=== PATIENT | male | born 1955 | race Caucasian/White ===

== ENCOUNTER 2018-04-24 16:23 | Emergency (ER) | payer OTHER, SELFPAY ==
[2018-04-24] VITALS (7 sets, daily range): BP systolic 138–180; BP diastolic 70–95; PULSE 54–120; RESP 10–25; TEMP 36.8; O2SAT 97–99
--- NOTE | 2018-04-24 16:35 | ED.CHESTPAIN ---
HPI - Chest Pain <CATHRYN cMcall - Last Filed: 04/24/18 22:21> General Chief Complaint: Chest Pain Stated Complaint: Chest Pain Time Seen by Provider: 04/24/18 16:35 Source: patient and EMS Mode of arrival: EMS Limitations: no limitations History of Present Illness HPI narrative: Patient had sudden onset of 10/10 chest pain that radiated around to his back. This occurred while he was sitting and typing and then was eating a donut. He denies any cardiac history but states he has a history of untreated hypertension. He was given 4 baby aspirin and 1 nitro spray at the clinic at the [employer] where he works. These single dose of nitro brought his pain down to 0/10. He denied any lightheadedness, dizziness, palpitations, nausea or vomiting during this episode. He is concerned he is having a heart attack. He notes that this several times he most recently gave blood they said his blood pressure was elevated. He denies any cough or respiratory distress. Denies fever. Related Data Home Medications Medication Instructions Recorded Confirmed No Known Home Medications 04/24/18 04/24/18 Previous Rx's Medication Instructions Recorded atorvastatin 10 mg PO DAILY #14 tab 04/24/18 metoprolol succinate 50 mg PO DAILY #14 tab 04/24/18 nitroglycerin [Nitrostat] 0.4 mg SL Q5M PRN #10 tab 04/24/18 Allergies Allergy/AdvReac Type Severity Reaction Status Date / Time No Known Allergies Allergy Uncoded 03/12/18 13:03 Review of Systems <CATHRYN Mccall - Last Filed: 04/24/18 22:21> Review of Systems GENERAL: See HPI HEENT: Denies sinus pain, ear pain, sore throat, difficulty swallowing, dizziness. RESPIRATORY: See HPI CARDIOVASCULAR: See HPI GASTROINTESTINAL: See HPI : Denies dysuria, frequency, incontinence, hematuria, urinary retention. MUSCULOSKELETAL: denies weakness, joint pain, or bony pain SKIN: Denies rash, skin lesions, or other NEUROLOGIC: Denies weakness, headache, numbness, change in speech, confusion, seizures, incoordination. PSYCHIATRIC: No concerning psychosocial issues. 12 point review of systems is negative except for those stated above Exam <CATHRYN Mccall - Last Filed: 04/24/18 22:21> Narrative Exam Narrative: GENERAL: This is a well-nourished, well-developed patient, no distress sitting in bed on cell phone HEAD: Atraumatic. Normocephalic. No temporal or scalp tenderness. EYES: Pupils equal round and reactive. Extraocular motions intact. No scleral icterus. No injection or drainage. ENT: Nose without bleeding, purulent drainage or septal hematoma. Throat without erythema, tonsillar hypertrophy or exudate. Uvula midline. Airway patent. NECK: Trachea midline. No JVD or lymphadenopathy. Supple, nontender, no meningeal signs. No carotid bruits bilaterally CARDIOVASCULAR: Regular rate and rhythm without murmurs, gallops, or rubs. RESPIRATORY: Clear to auscultation. Breath sounds equal bilaterally. No wheezes, rales, or rhonchi. GASTROINTESTINAL: Abdomen soft, non-tender, nondistended. No hepato-splenomegaly, or palpable masses. No guarding. EXTREMITIES: No clubbing, cyanosis, or edema. No joint tenderness, effusion, or edema noted. BACK: Nontender without deformity or crepitance. No flank tenderness. NEURO: AOx3. SKIN: No rash or erythema. Initial Vital Signs Initial Vital Signs: Vital Signs Temperature 98.2 F 04/24/18 16:20 Pulse Rate 70 04/24/18 16:20 Respiratory Rate 15 04/24/18 16:20 Blood Pressure 153/70 H 04/24/18 16:20 Pulse Oximetry 97 04/24/18 16:20 <Mindi Quach DO - Last Filed: 04/25/18 03:32> Initial Vital Signs Initial Vital Signs: Vital Signs Temperature 98.2 F 04/24/18 16:20 Pulse Rate 70 04/24/18 16:20 Respiratory Rate 15 04/24/18 16:20 Blood Pressure 153/70 H 04/24/18 16:20 Pulse Oximetry 97 04/24/18 16:20 Course <CATHRYN Mccall - Last Filed: 04/24/18 22:21> Hospital Course: Patient presents with chest pain that resolved with 1 nitro spray. Upon arrival to the emergency department he was pain free. A stat EKG was ordered that revealed sinus rhythm. He was hooked up to a monitor as well as lab work drawn and a chest x-ray taken. A chest x-ray showed no acute process. His initial set of lab work was negative with a negative troponin. Given the patient's risk factors of high blood pressure, obesity, positive family history I spoke with Dr. Gifford to recommend a an admission for a cardiac rule out. Heart score 4. Dr. Gifford recommended an outpatient workup with his PCP and shows did not admit the patient. She suggested starting him on a baby aspirin a day, giving a prescription for nitro starting him on a beta-ilda as well as atorvastatin. I did a 3 hr troponin rule out from time of pain onset. This also came back negative. A 2nd EKG showed no acute changes from the 1st. Patient stated comfort with going home and remained pain-free throughout his entire stay. He has been instructed to follow up with his primary care provider tomorrow for further evaluation. Orders Ordered: ED Orders 04/24/18 19:00 EKG-12 Lead Stat Discontinued Medications Sodium Chloride (Normal Saline 0.9%) 1,000 mls @ 150 mls/hr IV CONT REBA Last Infusion: 04/24/18 20:35 Dose: 0 mls/hr Admin: 04/24/18 16:54 Dose: 150 mls/hr Vital Signs - 8 hr 04/24/18 20:28 04/24/18 20:49 Pulse Rate 120 H 73 Respiratory Rate 16 Blood Pressure 180/95 H Blood Pressure [Left Arm] 180/95 H Pulse Oximetry 97 <Mindi Quach DO - Last Filed: 04/25/18 03:32> Orders Ordered: ED Orders 04/24/18 19:00 EKG-12 Lead Stat Discontinued Medications Sodium Chloride (Normal Saline 0.9%) 1,000 mls @ 150 mls/hr IV CONT REBA Last Infusion: 04/24/18 20:35 Dose: 0 mls/hr Admin: 04/24/18 16:54 Dose: 150 mls/hr Vital Signs - 8 hr 04/24/18 20:28 04/24/18 20:49 Pulse Rate 120 H 73 Respiratory Rate 16 Blood Pressure 180/95 H Blood Pressure [Left Arm] 180/95 H Pulse Oximetry 97 MDM - Chest Pain <CATHRYN Mccall - Last Filed: 04/24/18 22:21> Lab Data Attestation: I reviewed the patient's lab results. Result diagrams: 04/24/18 17:00 04/24/18 17:00 Lab Results 04/24/18 04/24/18 04/24/18 Range/Units 17:00 17:00 17:00 WBC 6.6 (4.5-11.0) X10^3/uL RBC 4.64 (4.5-5.9) X10^6/uL Hgb 13.1 L (13.5-17.5) g/dL Hct 39.3 L (41-53) % MCV 84.8 (80-100) fL MCH 28.3 (26-34) PG MCHC 33.4 (30-36) % RDW 14.1 (11.6-14.8) % Plt Count 163 (150-400) X10^3/uL Neut % (Auto) 60.1 (50-75) % Lymph % (Auto) 28.4 (25-40) % [place] % (Auto) 7.3 (3-14) % Eos % (Auto) 2.9 (2-4) % Baso % (Auto) 1.3 (0-2) % Neut # (Auto) 4000 (0722-0033) /uL PT 11.5 (10.1-12.7) SECONDS INR 1.1 (0.9-1.3) APTT 34 (26.4-36.2) SECONDS Sodium 142 (137-145) mmol/L Potassium 4.1 (3.4-5.1) mmol/L Chloride 105.0 (98-107) mmol/L Carbon Dioxide 27.0 (22-32) mmol/L BUN 19.0 (9-20) mg/dL Creatinine 0.80 (0.66-1.25) mg/dL Estimated GFR > 60.0 (>60) mL/min BUN/Creatinine Ratio 23.8 H (6-22) Glucose 130 H (80-110) mg/dL Calcium 8.6 (8.4-10.2) mg/dL Total Bilirubin 0.3 (0.2-1.3) mg/dL AST 39 (17-59) IU/L ALT 58 (21-72) IU/L Alkaline Phosphatase 93 (38-126) U/L Total Creatine Kinase 57 (55-170) U/L Troponin I < 0.012 (0.01-0.034) ng/mL Total Protein 6.7 (6.3-8.2) g/dL Albumin 3.8 (3.5-5.0) g/dL Globulin 2.9 (1.7-4.1) g/dL Albumin/Globulin Ratio 1.3 (1.0-2.8) Lipase 87 (23-300) U/L 05/24/18 Range/Units Unknown WBC (4.5-11.0) X10^3/uL RBC (4.5-5.9) X10^6/uL Hgb (13.5-17.5) g/dL Hct (41-53) % MCV (80-100) fL MCH (26-34) PG MCHC (30-36) % RDW (11.6-14.8) % Plt Count (150-400) X10^3/uL Neut % (Auto) (50-75) % Lymph % (Auto) (25-40) % [place] % (Auto) (3-14) % Eos % (Auto) (2-4) % Baso % (Auto) (0-2) % Neut # (Auto) (0228-9593) /uL PT (10.1-12.7) SECONDS INR (0.9-1.3) APTT (26.4-36.2) SECONDS Sodium (137-145) mmol/L Potassium (3.4-5.1) mmol/L Chloride (98-107) mmol/L Carbon Dioxide (22-32) mmol/L BUN (9-20) mg/dL Creatinine (0.66-1.25) mg/dL Estimated GFR (>60) mL/min BUN/Creatinine Ratio (6-22) Glucose (80-110) mg/dL Calcium (8.4-10.2) mg/dL Total Bilirubin (0.2-1.3) mg/dL AST (17-59) IU/L ALT (21-72) IU/L Alkaline Phosphatase (38-126) U/L Total Creatine Kinase (55-170) U/L Troponin I < 0.012 (0.01-0.034) ng/mL Total Protein (6.3-8.2) g/dL Albumin (3.5-5.0) g/dL Globulin (1.7-4.1) g/dL Albumin/Globulin Ratio (1.0-2.8) Lipase (23-300) U/L Imaging Data Chest x-ray: Radiologist's impression: [address] [id number] XRay Report Signed Patient: Bhavin Beckwith MR#: [id number] : 1955 Acct:[id number] Age/Sex: 62 / M Date of Service: 04/24/18 Loc: ED Accession Number: [id number] Procedure: XR chest 1V Ordering Provider: Cookie Escoto PROCEDURE: XR CHEST 1V INDICATIONS: chest pain TECHNIQUE: One view of the chest was acquired. COMPARISON: None. FINDINGS: Surgical changes and devices: None. Lungs and pleura: No pleural effusions or pneumothorax. Lungs are clear. Mediastinum: Mediastinal contours appear normal. Heart size is normal. Bones and chest wall: No suspicious bony lesions. Overlying soft tissues appear unremarkable. IMPRESSION: No acute cardiopulmonary disease process. Dictated by: Dimple Guy MD, PhD on 04/24/2018 at 15:54 Approved by: Dimple Guy MD, PhD on 04/24/2018 at 15:55 ECG Data Attestation: I personally reviewed and interpreted this ECG as follows: Interpretation: EKG at 4:22 p.m: Sinus with a ventricular rate of 63. No acute ST changes. NV interval 169. Viewed by Dr. Treadwell EKG at 6:53 p.m: Sinus rhythm rate of 54. No acute ST changes. NV interval 177. Viewed by Dr. Quach [facility] Narrative Medical decision making narrative: Patient presented for chest pain. He had 2-troponins as well as 2-EKGs. However the fact that his pain responded to nitroglycerin is concerning. I did attempt to admit the patient for observation status however Dr. Gifford declined to do so. She recommended follow-up as an outpatient with Dr. Reid the patient's PCP. The patient states understanding of such. The patient remained pain-free throughout his entire emergency department stay. Patient was started on 50 of Toprol-XL daily as per up-to-date recommendations. Dr. Gifford suggested a beta-ilda. He also was instructed to take a baby aspirin a day as per Dr. Giffrod. He was given a nitroglycerin prescription as per Dr. Gifford. I discussed at length with him the utilization of this prescription as well as not combined a medication such as Viagra. We discussed the possible side effects of decreased blood pressure, headache. He was also started on [address] Gifford suggested atorvastatin. I discussed the possible side effects of muscle pain and instructed him to follow up with primary care provider if he has any muscle pain. <Mindi Quach, DO - Last Filed: 04/25/18 03:32> Lab Data Attestation: I reviewed the patient's lab results. Lab Results 04/24/18 04/24/18 04/24/18 Range/Units 17:00 17:00 17:00 WBC 6.6 (4.5-11.0) X10^3/uL RBC 4.64 (4.5-5.9) X10^6/uL Hgb 13.1 L (13.5-17.5) g/dL Hct 39.3 L (41-53) % MCV 84.8 (80-100) fL MCH 28.3 (26-34) PG MCHC 33.4 (30-36) % RDW 14.1 (11.6-14.8) % Plt Count 163 (150-400) X10^3/uL Neut % (Auto) 60.1 (50-75) % Lymph % (Auto) 28.4 (25-40) % [place] % (Auto) 7.3 (3-14) % Eos % (Auto) 2.9 (2-4) % Baso % (Auto) 1.3 (0-2) % Neut # (Auto) 4000 (5818-7496) /uL PT 11.5 (10.1-12.7) SECONDS INR 1.1 (0.9-1.3) APTT 34 (26.4-36.2) SECONDS Sodium 142 (137-145) mmol/L Potassium 4.1 (3.4-5.1) mmol/L Chloride 105.0 (98-107) mmol/L Carbon Dioxide 27.0 (22-32) mmol/L BUN 19.0 (9-20) mg/dL Creatinine 0.80 (0.66-1.25) mg/dL Estimated GFR > 60.0 (>60) mL/min BUN/Creatinine Ratio 23.8 H (6-22) Glucose 130 H (80-110) mg/dL Calcium 8.6 (8.4-10.2) mg/dL Total Bilirubin 0.3 (0.2-1.3) mg/dL AST 39 (17-59) IU/L ALT 58 (21-72) IU/L Alkaline Phosphatase 93 (38-126) U/L Total Creatine Kinase 57 (55-170) U/L Troponin I < 0.012 (0.01-0.034) ng/mL Total Protein 6.7 (6.3-8.2) g/dL Albumin 3.8 (3.5-5.0) g/dL Globulin 2.9 (1.7-4.1) g/dL Albumin/Globulin Ratio 1.3 (1.0-2.8) Lipase 87 (23-300) U/L / Range/Units Unknown WBC (4.5-11.0) X10^3/uL RBC (4.5-5.9) X10^6/uL Hgb (13.5-17.5) g/dL Hct (41-53) % MCV (80-100) fL MCH (26-34) PG MCHC (30-36) % RDW (11.6-14.8) % Plt Count (150-400) X10^3/uL Neut % (Auto) (50-75) % Lymph % (Auto) (25-40) % [place] % (Auto) (3-14) % Eos % (Auto) (2-4) % Baso % (Auto) (0-2) % Neut # (Auto) (4733-0134) /uL PT (10.1-12.7) SECONDS INR (0.9-1.3) APTT (26.4-36.2) SECONDS Sodium (137-145) mmol/L Potassium (3.4-5.1) mmol/L Chloride (98-107) mmol/L Carbon Dioxide (22-32) mmol/L BUN (9-20) mg/dL Creatinine (0.66-1.25) mg/dL Estimated GFR (>60) mL/min BUN/Creatinine Ratio (6-22) Glucose (80-110) mg/dL Calcium (8.4-10.2) mg/dL Total Bilirubin (0.2-1.3) mg/dL AST (17-59) IU/L ALT (21-72) IU/L Alkaline Phosphatase (38-126) U/L Total Creatine Kinase (55-170) U/L Troponin I < 0.012 (0.01-0.034) ng/mL Total Protein (6.3-8.2) g/dL Albumin (3.5-5.0) g/dL Globulin (1.7-4.1) g/dL Albumin/Globulin Ratio (1.0-2.8) Lipase (23-300) U/L ECG Data Attestation: I personally reviewed and interpreted this ECG as follows: Prior ECG tracings: not available for review Interpretation: EKG 1. Normal sinus rhythm rate [address] changes or T-wave inversions no priors to compare EKG 2. Normal sinus rhythm rate 54 no changes from earlier no acute ST T changes or T-wave inversions MDM Narrative Medical decision making narrative: Heart score equals 2 2-troponins chest pain free Discharge Plan Departure Patient Disposition: Home, Self-Care Clinical Impression: Chest pain Discharge Date/Time: 04/24/18 20:51 Interventions: ED Discharge Assessment Last Done: 04/24/18 20:49 Instructions: DI for Angina, DI for Chest Pain Activity Restrictions/Additional Instructions: I would like you to follow up with your primary care provider tomorrow. I am starting you on an as-needed medication if the chest pain happened again. Put 1 nitroglycerin under your tongue if you have chest pain wait 5 min and take up to 2 more for a total of 3 pills if you need to, 5 min apart. They can give you a headache or make you lightheaded. Do not take this with medications such as Viagra. Start taking a baby aspirin a day I would like you to come back to the emergency department if you have any further chest pain or lightheadedness, shortness of breath, dizziness or concerned about your heart. Prescriptions: New atorvastatin 10 mg tablet 10 mg PO DAILY Qty: 14 RF: 0 metoprolol succinate 50 mg tablet extended release 24 hr 50 mg PO DAILY Qty: 14 RF: 0 nitroglycerin [Nitrostat] 0.4 mg tablet, sublingual 0.4 mg SL Q5M PRN (Reason: chest pain) Qty: 10 RF: 0 No Action No Known Home Medications RF: 0 <Mindi Quach, - Last Filed: 04/25/18 03:32> Cosign ED Attending Kathyaature Attestation: I was immediately available in the department for consultation. Documentation has been reviewed. I agree with assessment and plan.
--- NOTE | 2018-04-24 16:41 | ED_ITS ---
HPI - Chest Pain <CATHRYN Mccall - Last Filed: 04/24/18 22:21> General Chief Complaint: Chest Pain Stated Complaint: Chest Pain Time Seen by Provider: 04/24/18 16:35 Source: patient and EMS Mode of arrival: EMS Limitations: no limitations History of Present Illness HPI narrative: Patient had sudden onset of 10/10 chest pain that radiated around to his back. This occurred while he was sitting and typing and then was eating a donut. He denies any cardiac history but states he has a history of untreated hypertension. He was given 4 baby aspirin and 1 nitro spray at the clinic at the [employer] where he works. These single dose of nitro brought his pain down to 0/10. He denied any lightheadedness, dizziness, palpitations, nausea or vomiting during this episode. He is concerned he is having a heart attack. He notes that this several times he most recently gave blood they said his blood pressure was elevated. He denies any cough or respiratory distress. Denies fever. Related Data Home Medications Medication Instructions Recorded Confirmed No Known Home Medications 04/24/18 04/24/18 Previous Rx's Medication Instructions Recorded atorvastatin 10 mg PO DAILY #14 tab 04/24/18 metoprolol succinate 50 mg PO DAILY #14 tab 04/24/18 nitroglycerin [Nitrostat] 0.4 mg SL Q5M PRN #10 tab 04/24/18 Allergies Allergy/AdvReac Type Severity Reaction Status Date / Time No Known Allergies Allergy Uncoded 03/12/18 13:03 Review of Systems <CATHRYN Mccall - Last Filed: 04/24/18 22:21> Review of Systems GENERAL: See HPI HEENT: Denies sinus pain, ear pain, sore throat, difficulty swallowing, dizziness. RESPIRATORY: See HPI CARDIOVASCULAR: See HPI GASTROINTESTINAL: See HPI : Denies dysuria, frequency, incontinence, hematuria, urinary retention. MUSCULOSKELETAL: denies weakness, joint pain, or bony pain SKIN: Denies rash, skin lesions, or other NEUROLOGIC: Denies weakness, headache, numbness, change in speech, confusion, seizures, incoordination. PSYCHIATRIC: No concerning psychosocial issues. 12 point review of systems is negative except for those stated above Exam <CATHRYN Mccall - Last Filed: 04/24/18 22:21> Narrative Exam Narrative: GENERAL: This is a well-nourished, well-developed patient, no distress sitting in bed on cell phone HEAD: Atraumatic. Normocephalic. No temporal or scalp tenderness. EYES: Pupils equal round and reactive. Extraocular motions intact. No scleral icterus. No injection or drainage. ENT: Nose without bleeding, purulent drainage or septal hematoma. Throat without erythema, tonsillar hypertrophy or exudate. Uvula midline. Airway patent. NECK: Trachea midline. No JVD or lymphadenopathy. Supple, nontender, no meningeal signs. No carotid bruits bilaterally CARDIOVASCULAR: Regular rate and rhythm without murmurs, gallops, or rubs. RESPIRATORY: Clear to auscultation. Breath sounds equal bilaterally. No wheezes , rales, or rhonchi. GASTROINTESTINAL: Abdomen soft, non-tender, nondistended. No hepato-splenomegaly , or palpable masses. No guarding. EXTREMITIES: No clubbing, cyanosis, or edema. No joint tenderness, effusion, or edema noted. BACK: Nontender without deformity or crepitance. No flank tenderness. NEURO: AOx3. SKIN: No rash or erythema. Initial Vital Signs Initial Vital Signs: Vital Signs Temperature 98.2 F 04/24/18 16:20 Pulse Rate 70 04/24/18 16:20 Respiratory Rate 15 04/24/18 16:20 Blood Pressure 153/70 H 04/24/18 16:20 Pulse Oximetry 97 04/24/18 16:20 <Mindi Quach DO - Last Filed: 04/25/18 03:32> Initial Vital Signs Initial Vital Signs: Vital Signs Temperature 98.2 F 04/24/18 16:20 Pulse Rate 70 04/24/18 16:20 Respiratory Rate 15 04/24/18 16:20 Blood Pressure 153/70 H 04/24/18 16:20 Pulse Oximetry 97 04/24/18 16:20 Course <CATHRYN Mccall - Last Filed: 04/24/18 22:21> Hospital Course: Patient presents with chest pain that resolved with 1 nitro spray. Upon arrival to the emergency department he was pain free. A stat EKG was ordered that revealed sinus rhythm. He was hooked up to a monitor as well as lab work drawn and a chest x-ray taken. A chest x-ray showed no acute process. His initial set of lab work was negative with a negative troponin. Given the patient's risk factors of high blood pressure, obesity, positive family history I spoke with Dr. Gifford to recommend a an admission for a cardiac rule out. Heart score 4. Dr. Gifford recommended an outpatient workup with his PCP and shows did not admit the patient. She suggested starting him on a baby aspirin a day, giving a prescription for nitro starting him on a beta-ilda as well as atorvastatin. I did a 3 hr troponin rule out from time of pain onset. This also came back negative. A 2nd EKG showed no acute changes from the 1st. Patient stated comfort with going home and remained pain-free throughout his entire stay. He has been instructed to follow up with his primary care provider tomorrow for further evaluation. Orders Ordered: ED Orders 04/24/18 19:00 EKG-12 Lead Stat Discontinued Medications Sodium Chloride (Normal Saline 0.9%) 1,000 mls @ 150 mls/hr IV CONT REBA Last Infusion: 04/24/18 20:35 Dose: 0 mls/hr Admin: 04/24/18 16:54 Dose: 150 mls/hr Vital Signs - 8 hr 04/24/18 20:28 04/24/18 20:49 Pulse Rate 120 H 73 Respiratory Rate 16 Blood Pressure 180/95 H Blood Pressure [Left Arm] 180/95 H Pulse Oximetry 97 <Mindi Quach DO - Last Filed: 04/25/18 03:32> Orders Ordered: ED Orders 04/24/18 19:00 EKG-12 Lead Stat Discontinued Medications Sodium Chloride (Normal Saline 0.9%) 1,000 mls @ 150 mls/hr IV CONT REBA Last Infusion: 04/24/18 20:35 Dose: 0 mls/hr Admin: 04/24/18 16:54 Dose: 150 mls/hr Vital Signs - 8 hr 04/24/18 20:28 04/24/18 20:49 Pulse Rate 120 H 73 Respiratory Rate 16 Blood Pressure 180/95 H Blood Pressure [Left Arm] 180/95 H Pulse Oximetry 97 MDM - Chest Pain <CATHRYN Mccall - Last Filed: 04/24/18 22:21> Lab Data Attestation: I reviewed the patient's lab results. Result diagrams: 04/24/18 17:00 04/24/18 17:00 Lab Results 04/24/18 04/24/18 04/24/18 Range/Units 17:00 17:00 17:00 WBC 6.6 (4.5-11.0) X10^3/uL RBC 4.64 (4.5-5.9) X10^6/uL Hgb 13.1 L (13.5-17.5) g/dL Hct 39.3 L (41-53) % MCV 84.8 (80-100) fL MCH 28.3 (26-34) PG MCHC 33.4 (30-36) % RDW 14.1 (11.6-14.8) % Plt Count 163 (150-400) X10^3/uL Neut % (Auto) 60.1 (50-75) % Lymph % (Auto) 28.4 (25-40) % [place] % (Auto) 7.3 (3-14) % Eos % (Auto) 2.9 (2-4) % Baso % (Auto) 1.3 (0-2) % Neut # (Auto) 4000 (3440-6647) /uL PT 11.5 (10.1-12.7) SECONDS INR 1.1 (0.9-1.3) APTT 34 (26.4-36.2) SECONDS Sodium 142 (137-145) mmol/L Potassium 4.1 (3.4-5.1) mmol/L Chloride 105.0 (98-107) mmol/L Carbon Dioxide 27.0 (22-32) mmol/L BUN 19.0 (9-20) mg/dL Creatinine 0.80 (0.66-1.25) mg/dL Estimated GFR > 60.0 (>60) mL/min BUN/Creatinine Ratio 23.8 H (6-22) Glucose 130 H (80-110) mg/dL Calcium 8.6 (8.4-10.2) mg/dL Total Bilirubin 0.3 (0.2-1.3) mg/dL AST 39 (17-59) IU/L ALT 58 (21-72) IU/L Alkaline Phosphatase 93 (38-126) U/L Total Creatine Kinase 57 (55-170) U/L Troponin I < 0.012 (0.01-0.034) ng/mL Total Protein 6.7 (6.3-8.2) g/dL Albumin 3.8 (3.5-5.0) g/dL Globulin 2.9 (1.7-4.1) g/dL Albumin/Globulin Ratio 1.3 (1.0-2.8) Lipase 87 (23-300) U/L 05/24/18 Range/Units Unknown WBC (4.5-11.0) X10^3/uL RBC (4.5-5.9) X10^6/uL Hgb (13.5-17.5) g/dL Hct (41-53) % MCV (80-100) fL MCH (26-34) PG MCHC (30-36) % RDW (11.6-14.8) % Plt Count (150-400) X10^3/uL Neut % (Auto) (50-75) % Lymph % (Auto) (25-40) % [place] % (Auto) (3-14) % Eos % (Auto) (2-4) % Baso % (Auto) (0-2) % Neut # (Auto) (5016-9390) /uL PT (10.1-12.7) SECONDS INR (0.9-1.3) APTT (26.4-36.2) SECONDS Sodium (137-145) mmol/L Potassium (3.4-5.1) mmol/L Chloride (98-107) mmol/L Carbon Dioxide (22-32) mmol/L BUN (9-20) mg/dL Creatinine (0.66-1.25) mg/dL Estimated GFR (>60) mL/min BUN/Creatinine Ratio (6-22) Glucose (80-110) mg/dL Calcium (8.4-10.2) mg/dL Total Bilirubin (0.2-1.3) mg/dL AST (17-59) IU/L ALT (21-72) IU/L Alkaline Phosphatase (38-126) U/L Total Creatine Kinase (55-170) U/L Troponin I < 0.012 (0.01-0.034) ng/mL Total Protein (6.3-8.2) g/dL Albumin (3.5-5.0) g/dL Globulin (1.7-4.1) g/dL Albumin/Globulin Ratio (1.0-2.8) Lipase (23-300) U/L Imaging Data Chest x-ray: Radiologist's impression: [address] [address] XRay Report Signed Patient: Bhavin Beckwith MR#: [id number] : 1955 Acct:[id number] Age/Sex: 62 / M Date of Service: 04/24/18 Loc: ED Accession Number: [id number] Procedure: XR chest 1V Ordering Provider: Cookie Escoto PROCEDURE: XR CHEST 1V INDICATIONS: chest pain TECHNIQUE: One view of the chest was acquired. COMPARISON: None. FINDINGS: Surgical changes and devices: None. Lungs and pleura: No pleural effusions or pneumothorax. Lungs are clear. Mediastinum: Mediastinal contours appear normal. Heart size is normal. Bones and chest wall: No suspicious bony lesions. Overlying soft tissues appear unremarkable. IMPRESSION: No acute cardiopulmonary disease process. Dictated by: Dimple Guy MD, PhD on 04/24/2018 at 15:54 Approved by: Dimple Guy MD, PhD on 04/24/2018 at 15:55 ECG Data Attestation: I personally reviewed and interpreted this ECG as follows: Interpretation: EKG at 4:22 p.m: Sinus with a ventricular rate of 63. No acute ST changes. MI interval 169. Viewed by Dr. Treadwell EKG at 6:53 p.m: Sinus rhythm rate of 54. No acute ST changes. MI interval 177. Viewed by Dr. Quach [facility] Narrative Medical decision making narrative: Patient presented for chest pain. He had 2- troponins as well as 2-EKGs. However the fact that his pain responded to nitroglycerin is concerning. I did attempt to admit the patient for observation status however Dr. Gifford declined to do so. She recommended follow- up as an outpatient with Dr. Reid the patient's PCP. The patient states understanding of such. The patient remained pain-free throughout his entire emergency department stay. Patient was started on 50 of Toprol-XL daily as per up-to-date recommendations. Dr. Gifford suggested a beta-ilda. He also was instructed to take a baby aspirin a day as per Dr. Gifford. He was given a nitroglycerin prescription as per Dr. Gifford. I discussed at length with him the utilization of this prescription as well as not combined a medication such as Viagra. We discussed the possible side effects of decreased blood pressure, headache. He was also started on [address] Gifford suggested atorvastatin. I discussed the possible side effects of muscle pain and instructed him to follow up with primary care provider if he has any muscle pain. <Mindi Quach, DO - Last Filed: 04/25/18 03:32> Lab Data Attestation: I reviewed the patient's lab results. Lab Results 04/24/18 04/24/18 04/24/18 Range/Units 17:00 17:00 17:00 WBC 6.6 (4.5-11.0) X10^3/uL RBC 4.64 (4.5-5.9) X10^6/uL Hgb 13.1 L (13.5-17.5) g/dL Hct 39.3 L (41-53) % MCV 84.8 (80-100) fL MCH 28.3 (26-34) PG MCHC 33.4 (30-36) % RDW 14.1 (11.6-14.8) % Plt Count 163 (150-400) X10^3/uL Neut % (Auto) 60.1 (50-75) % Lymph % (Auto) 28.4 (25-40) % [place] % (Auto) 7.3 (3-14) % Eos % (Auto) 2.9 (2-4) % Baso % (Auto) 1.3 (0-2) % Neut # (Auto) 4000 (7987-2523) /uL PT 11.5 (10.1-12.7) SECONDS INR 1.1 (0.9-1.3) APTT 34 (26.4-36.2) SECONDS Sodium 142 (137-145) mmol/L Potassium 4.1 (3.4-5.1) mmol/L Chloride 105.0 (98-107) mmol/L Carbon Dioxide 27.0 (22-32) mmol/L BUN 19.0 (9-20) mg/dL Creatinine 0.80 (0.66-1.25) mg/dL Estimated GFR > 60.0 (>60) mL/min BUN/Creatinine Ratio 23.8 H (6-22) Glucose 130 H (80-110) mg/dL Calcium 8.6 (8.4-10.2) mg/dL Total Bilirubin 0.3 (0.2-1.3) mg/dL AST 39 (17-59) IU/L ALT 58 (21-72) IU/L Alkaline Phosphatase 93 (38-126) U/L Total Creatine Kinase 57 (55-170) U/L Troponin I < 0.012 (0.01-0.034) ng/mL Total Protein 6.7 (6.3-8.2) g/dL Albumin 3.8 (3.5-5.0) g/dL Globulin 2.9 (1.7-4.1) g/dL Albumin/Globulin Ratio 1.3 (1.0-2.8) Lipase 87 (23-300) U/L / Range/Units Unknown WBC (4.5-11.0) X10^3/uL RBC (4.5-5.9) X10^6/uL Hgb (13.5-17.5) g/dL Hct (41-53) % MCV (80-100) fL MCH (26-34) PG MCHC (30-36) % RDW (11.6-14.8) % Plt Count (150-400) X10^3/uL Neut % (Auto) (50-75) % Lymph % (Auto) (25-40) % [place] % (Auto) (3-14) % Eos % (Auto) (2-4) % Baso % (Auto) (0-2) % Neut # (Auto) (8512-8122) /uL PT (10.1-12.7) SECONDS INR (0.9-1.3) APTT (26.4-36.2) SECONDS Sodium (137-145) mmol/L Potassium (3.4-5.1) mmol/L Chloride (98-107) mmol/L Carbon Dioxide (22-32) mmol/L BUN (9-20) mg/dL Creatinine (0.66-1.25) mg/dL Estimated GFR (>60) mL/min BUN/Creatinine Ratio (6-22) Glucose (80-110) mg/dL Calcium (8.4-10.2) mg/dL Total Bilirubin (0.2-1.3) mg/dL AST (17-59) IU/L ALT (21-72) IU/L Alkaline Phosphatase (38-126) U/L Total Creatine Kinase (55-170) U/L Troponin I < 0.012 (0.01-0.034) ng/mL Total Protein (6.3-8.2) g/dL Albumin (3.5-5.0) g/dL Globulin (1.7-4.1) g/dL Albumin/Globulin Ratio (1.0-2.8) Lipase (23-300) U/L ECG Data Attestation: I personally reviewed and interpreted this ECG as follows: Prior ECG tracings: not available for review Interpretation: EKG 1. Normal sinus rhythm rate [address] changes or T- wave inversions no priors to compare EKG 2. Normal sinus rhythm rate 54 no changes from earlier no acute ST T changes or T-wave inversions MDM Narrative Medical decision making narrative: Heart score equals 2 2-troponins chest pain free Discharge Plan Departure Patient Disposition: Home, Self-Care Clinical Impression: Chest pain Discharge Date/Time: 04/24/18 20:51 Interventions: ED Discharge Assessment Last Done: 04/24/18 20:49 Instructions: DI for Angina, DI for Chest Pain Activity Restrictions/Additional Instructions: I would like you to follow up with your primary care provider tomorrow. I am starting you on an as-needed medication if the chest pain happened again. Put 1 nitroglycerin under your tongue if you have chest pain wait 5 min and take up to 2 more for a total of 3 pills if you need to, 5 min apart. They can give you a headache or make you lightheaded. Do not take this with medications such as Viagra. Start taking a baby aspirin a day I would like you to come back to the emergency department if you have any further chest pain or lightheadedness, shortness of breath, dizziness or concerned about your heart. Prescriptions: New atorvastatin 10 mg tablet 10 mg PO DAILY Qty: 14 RF: 0 metoprolol succinate 50 mg tablet extended release 24 hr 50 mg PO DAILY Qty: 14 RF: 0 nitroglycerin [Nitrostat] 0.4 mg tablet, sublingual 0.4 mg SL Q5M PRN (Reason: chest pain) Qty: 10 RF: 0 No Action No Known Home Medications RF: 0 <Mindi Quach, - Last Filed: 04/25/18 03:32> Cosign ED Attending Kathyaature Attestation: I was immediately available in the department for consultation. Documentation has been reviewed. I agree with assessment and plan.
[2018-04-24] MEDS: SODIUM CHLORIDE 0.9% 1,000 ML 150 ML IV (16:54)
[2018-04-24 17:11] LABS: Add Manual Diff / Slide Review NO; Basophils Percent Auto 1.3 % (0-2); Eosinophils Percent Auto 2.9 % (2-4); Hematocrit 39.3 % (41-53); Hemoglobin 13.1 g/dL (13.5-17.5); Lymphocytes Percent Auto 28.4 % (25-40); Mean Corpuscular HGB Conc 33.4 % (30-36); Mean Corpuscular Hemoglobin 28.3 PG (26-34); Mean Corpuscular Volume 84.8 fL (80-100); Monocytes Percent Auto 7.3 % (3-14); Neutrophils Absolute Auto 4000 /uL (3000-5900); Neutrophils Percent Auto 60.1 % (50-75); Platelet Count 163 X10^3/uL (150-400); Red Blood Cell Count 4.64 X10^6/uL (4.5-5.9); Red Cell Distribution Width 14.1 % (11.6-14.8); White Blood Cell Count 6.6 X10^3/uL (4.5-11.0)
[2018-04-24 17:21] LABS: INR 1.1 (0.9-1.3); Prothrombin Time 11.5 SECONDS (10.1-12.7)
[2018-04-24 17:23] LABS: PTT Partial Thromboplastin Tim 34 SECONDS (26.4-36.2)
[2018-04-24 17:27] LABS: Alanine Aminotransferase 58 IU/L (21-72); Albumin 3.8 g/dL (3.5-5.0); Albumin Globulin Ratio 1.3 (1.0-2.8); Alkaline Phosphatase 93 U/L (38-126); Aspartate Aminotransferase 39 IU/L (17-59); BUN Creatinine Ratio 23.8 (6-22); Bilirubin Total 0.3 mg/dL (0.2-1.3); Calcium 8.6 mg/dL (8.4-10.2); Creatine Kinase 57 U/L (55-170); Estimated Glomerular Filt Rate > 60.0 mL/min (>60); Globulin 2.9 g/dL (1.7-4.1); Glucose 130 mg/dL (80-110); HEMOLYSIS < 15 (0-50); Lipase 87 U/L (23-300); Potassium 4.1 mmol/L (3.4-5.1); Sodium 142 mmol/L (137-145); Total Protein 6.7 g/dL (6.3-8.2)
[2018-04-24 17:40] LABS: Troponin I < 0.012 ng/mL (0.01-0.034)
[2018-04-24 19:51] LABS: Troponin I < 0.012 ng/mL (0.01-0.034)
== END 2018-04-24 20:51 | disposition home or self-care (01) ==
PROVIDERS: Emergency Provider Nurse Practitioner Family; PCP Family Medicine
DX: R07.9 Chest pain, unspecified (principal)
CPT/HCPCS: 36415; 71045; 80053; 81003; 82550; 82553; 83690; 84484; 85025; 85610; 85730; 93005; 96360; 96361; 99284; 99285

== ENCOUNTER → 2018-05-30 13:24 | Outpatient (CLI) | payer OTHER, SELFPAY ==
--- NOTE | 2018-05-30 14:57 | P.PCN_ITS ---
Cardiac Stress Test Report Referral & Results Date Patient Seen: 05/30/18 Time Patient Seen: 14:55 Requesting provider: Tito Reid Indication: Chest pressure Rest ECG: Unremarkable Procedure Note: Today following both written and verbal informed consent the patient was exercised according to a standard [place] protocol patient went for a total of 8 min 9 sec achieving a maximum heart rate of 160 to maximum systolic blood pressure of 240. This is approximately 10.1 METS. Exercise was terminated at this point because of targets having been met. Patient was also given Cardiolite through a previously started Hep-Lock IV by the nuclear technologist approximately 1 minute prior to the cessation of exercise. Patient's functional aerobic impairment was 0 on the sedentary scale Patient's heart rate response was normal below blood pressure response was quite hypertensive There is some very nonspecific ST-T segment changes in V5 and V6 as well as inferior leads that almost instantaneously return to normal upon cessation of activity. Therefore I consider these to be very nonspecific Rare PVC identified Impression: Patient with average exercise capacity. No clear evidence of ischemia. Await perfusion imaging which reported separately. Patient was quite hypertensive in his response which should probably be addressed separately. Please note: Actual ECG tracings can be found in the PACS system.
--- NOTE | 2018-06-03 05:52 | DI.NM.S_ITS ---
DATE OF SERVICE: 05/30/2018 PROCEDURE PERFORMED: Exercise treadmill stress and rest myocardial perfusion imaging with gating to assess ejection fraction and regional wall motion. ORDERING PHYSICIAN: Tito Reid MD INDICATIONS: The patient is a 62-year-old obese male with recent chest discomfort. EXERCISE TREADMILL TESTING: The patient was able to exercise for 8 minutes 9 seconds on a standard [place] protocol, suggesting fair exercise capacity with an ELIDA of +5%. He had a normal heart rate response, obtaining a maximum heart rate of 162 BPM (103% of his predicted maximum). He had a significant hypertensive blood pressure response to exercise with a resting blood pressure of 158/90 that increased to a maximum of 240/100 at peak exercise. He had no chest discomfort. His resting ECG shows evidence for LVH but fairly normal ST segments. With exercise, he develops 1-[address] depression in the lateral leads, less than the inferior leads, but this is nonspecific given the hypertensive blood pressure response. There were no arrhythmias. At 7 minutes 9 seconds of exercise, at a heart rate of 154 BPM, 26.1 mCi of technetium-99 Myoview was injected and the patient was imaged 20 minutes later using a gated SPECT acquisition protocol. He returned 3 days later and was reinjected with an additional 25.8 mCi of technetium-99 Myoview and was imaged 30 minutes later, again using a gated SPECT acquisition protocol. FINDINGS: 1. Raw data: There is fair myocardial tracer uptake although with some evidence for attenuation artifact. The lung-heart ratio is normal at 0.39 and the TID ratio is normal at 0.78. 2. Quantitated gated SPECT: Post stress ejection fraction is estimated at 64% without any focal wall motion abnormality and specifically, the inferior wall appears to have normal contractility. The resting ejection fraction is 56%. Left ventricular volumes were mildly increased with a resting end-diastolic volume of 167 mL which may be related to the patient's large BSA. 3. Myocardial perfusion imaging: Post-stress supine images show a fairly normal myocardial perfusion study although with [id number] reduced tracer activity in the proximal and mid inferior wall, extending out to the distal inferolateral wall in a pattern that would be very consistent with diaphragmatic attenuation artifact, supported by its complete resolution on the prone images, revealing a normal perfusion pattern. There are no other perfusion defects. The resting images show some improvement in this inferior defect but may be related to body positioning. Given the normal prone images, this improvement is likely artifactual. CONCLUSION: 1. Probable normal myocardial perfusion study. 2. Iyxk-zf-adwlzghz, partially reversible perfusion defect in the proximal and mid inferior wall, extending into the distal inferolateral wall that completely resolves on the prone images. This most likely reflects diaphragmatic attenuation artifact, although a modest amount of ischemia cannot be entirely excluded. 3. Normal left ventricular systolic function without any regional wall motion abnormality. Left ventricular volumes are mildly increased. 4. Fair exercise capacity without angina. While there are significant ST segment shifts with exercise, this lacks specificity because of a significant hypertensive blood pressure response to exercise with a peak blood pressure of 240/100. Bhavin Beckwith - KOLE/hafsa/álvaro doc#: [id number]/job#: [id number] dd: 06/02/2018 13:02:00 dt: 06/03/2018 05:39:00 DICTATING MD/COPIES TO: Adonis Gallagher MD ; Tito Reid MD COPIES MNE: TORIN BARAHONA
== END ==
PROVIDERS: PCP Family Medicine; Visit Provider Family Medicine
DX: R07.9 Chest pain, unspecified (principal)
CPT/HCPCS: 78452; 93016; 93017; 93018; A9502